=== PATIENT | male | born 1960 | race Caucasian/White ===

== ENCOUNTER 2019-02-01 22:11 | Observation (INO) ==
[2019-02-01] MEDS ORDERED: ONDANSETRON 4 MG/2 ML VIAL IV STA (23:07)
[2019-02-01] MEDS ORDERED: PANTOPRAZOLE 40 MG VIAL IV STA (23:07)
[2019-02-01] MEDS ORDERED: SODIUM CHLORIDE 0.9% 1,000 ML IV STA (23:07)
[2019-02-01] MEDS ORDERED: METOCLOPRAMIDE 10 MG/2 ML VIAL IV STA (23:09)
[2019-02-01 23:41] LABS: Basophils # 0.1 10*3/uL (0.0-0.2); Basophils % 0.7 % (0.0-0.8); Eosinophils # 0.3 10*3/uL (0.0-0.87); Eosinophils % 2.2 % (0.00-10.9); Hematocrit 45.2 VOL% (42.0-52.0); Hemoglobin 15.1 GM/DL (14.0-18.0); Immature Granulocytes % 1.1 %; Immature Granulocytes Absolute 0.14 #; Lymphocytes # 2.2 10*3/uL (1.4-4.0); Lymphocytes % 17.8 % (21.2-54.2); Mean Corpuscular HGB Conc 33.4 GM/DL (32-36); Mean Corpuscular Volume 86.9 FL (87-102); Mean Platelet Volume 9.1 FL (9.6-12.0); Neutrophils % 71.2 % (38.7-73.9); Platelet Count 250 T/CUMM (130-400); White Blood Count 12.5 T/CUMM (4-12)
[2019-02-02 00:03] LABS: Alanine Aminotransferase 47 U/L (16-61); Albumin 3.6 G/DL (3.4-5.0); Alkaline Phosphatase 101 U/L (45-117); Amylase 67 U/L (25-115); Aspartate Amino Transferase 32 U/L (0-37); Bilirubin,Total < 0.39 MG/DL (0.2-1.0); Blood Urea Nitrogen 10 MG/DL (7-18); CKMB % 1.6 %; Calcium 9.5 MG/DL (8.5-10.1); Glucose 136 MG/DL (74-106); Osmolality,Calculated 283.1 MOS/KG (273-304); Total Protein 7.2 G/DL (6.4-8.3); Troponin I < 0.015 NG/ML (0.00-0.045)
[2019-02-02 00:15] LABS: Apearance,Urine CLEAR (Clear); Bilirubin,Urine Negative (Negative); Blood, Urine Negative (Negative); Glucose,Urine (UA) 50 mg/dL (Negative); Hyaline Casts,Urine 1 /LPF (0-3); Ketones,Urine Negative (Negative); Mucus,Urine Occasional /LPF (Occasional); Nitrite,Urine Negative (Negative); Protein,Urine Negative; RBC,Urine 1 /HPF (0-4); Urine Color Yellow (Yellow); Urine Urobilinogen < 2.0 EU/DL (0.2-1.0); WBC,Urine 4 /HPF (0-6)
[2019-02-02] MEDS ORDERED: fentaNYL 100 MCG/2 ML VIAL IV STA (00:16)
[2019-02-02] MEDS ORDERED: DICYCLOMINE 20 MG/2 ML AMP IM ONE (00:23)
[2019-02-02] MEDS ORDERED: metroNIDAZOLE INJ 500 MG in PREMIX 1 EACH IV STA (00:55)
[2019-02-02] MEDS ORDERED: methylPREDNISolone SOD SUC 125 MG/2 ML VIAL IV STA (00:55)
[2019-02-02] MEDS ORDERED: ONDANSETRON 4 MG/2 ML VIAL IV PRN (01:49)
[2019-02-02] MEDS ORDERED: ZALEPLON 5 MG CAPSULE PO PRN (02:02)
[2019-02-02] MEDS: ENOXAPARIN 40 MG/0.4 ML SYRINGE SUBCUT SCH (03:08)
[2019-02-02] MEDS: SODIUM CHLORIDE 0.9% 1,000 ML IV SCH ×2 (03:08→15:40)
[2019-02-02] MEDS ORDERED: NICOTINE 21 MG/24 HR PATCH TRANSDERM PRN (04:14)
[2019-02-02] MEDS ORDERED: GLUCAGON 1 MG VIAL IM PRN ×2 (04:14)
[2019-02-02] MEDS ORDERED: MORPHINE 4 MG/1 ML VIAL IV PRN (04:14)
[2019-02-02] MEDS ORDERED: DEXTROSE 50% 25 GM/50 ML VIAL IV PRN ×2 (04:14)
[2019-02-02] MEDS: LEVOFLOXACIN INJ 500 MG in PREMIX 1 EACH IV SCH (04:26)
[2019-02-02 07:16] LABS: Basophils % 0.2 % (0.0-0.8); Eosinophils % 0.1 % (0.00-10.9); Hemoglobin 15.3 GM/DL (14.0-18.0); Immature Granulocytes % 0.9 %; Immature Granulocytes Absolute 0.11 #; Lymphocytes # 1.1 10*3/uL (1.4-4.0); Lymphocytes % 8.3 % (21.2-54.2); Mean Corpuscular HGB Conc 32.6 GM/DL (32-36); Mean Corpuscular Volume 87.7 FL (87-102); Mean Platelet Volume 9.6 FL (9.6-12.0); Monocytes % 1.5 % (1.7-12.7); Platelet Count 241 T/CUMM (130-400); Red Blood Count 5.36 MC/CUMM (3.8-5.5); White Blood Count 12.6 T/CUMM (4-12)
[2019-02-02 07:38] LABS: Calcium 9.3 MG/DL (8.5-10.1); Osmolality,Calculated 279.5 MOS/KG (273-304)
[2019-02-02] MEDS ORDERED: PANTOPRAZOLE 40 MG TABLET PO SCH (09:00)
[2019-02-02] MEDS: ATORVASTATIN 10 MG TABLET PO SCH (09:17)
[2019-02-02] MEDS: CARVEDILOL 6.25 MG TABLET PO SCH ×2 (09:17→17:28)
[2019-02-02] MEDS: TAMSULOSIN 0.4 MG CAPSULE PO SCH ×2 (09:17→20:03)
[2019-02-02] MEDS: metroNIDAZOLE INJ 500 MG in PREMIX 1 EACH IV SCH ×3 (09:18→20:03)
[2019-02-02] MEDS: INSULIN REGULAR 100 UNIT/ML SUBCUT SCH ×4 (10:05→20:10)
[2019-02-02] MEDS: BENAZEPRIL 10 MG TABLET PO SCH (10:06)
[2019-02-02] MEDS: PANTOPRAZOLE 40 MG TABLET PO SCH (20:03)
[2019-02-02] MEDS ORDERED: FAMOTIDINE 20 MG/2 ML VIAL IV SCH (21:00)
[2019-02-02] MEDS ORDERED: PANTOPRAZOLE 40 MG VIAL IV SCH (21:00)
[2019-02-03] MEDS: metroNIDAZOLE INJ 500 MG in PREMIX 1 EACH IV SCH ×4 (01:25→20:36)
[2019-02-03] MEDS: SODIUM CHLORIDE 0.9% 1,000 ML IV SCH ×3 (01:25→18:48)
[2019-02-03] MEDS: LEVOFLOXACIN INJ 500 MG in PREMIX 1 EACH IV SCH (02:36)
[2019-02-03] MEDS: ENOXAPARIN 40 MG/0.4 ML SYRINGE SUBCUT SCH (02:36)
[2019-02-03] MEDS: TAMSULOSIN 0.4 MG CAPSULE PO SCH ×2 (09:53→20:36)
[2019-02-03] MEDS: PANTOPRAZOLE 40 MG TABLET PO SCH ×2 (09:53→20:36)
[2019-02-03] MEDS: ATORVASTATIN 10 MG TABLET PO SCH (09:53)
[2019-02-03] MEDS: CARVEDILOL 6.25 MG TABLET PO SCH ×2 (09:53→16:29)
[2019-02-03] MEDS: BENAZEPRIL 10 MG TABLET PO SCH (09:53)
[2019-02-03] MEDS: INSULIN REGULAR 100 UNIT/ML SUBCUT SCH ×4 (09:53→21:35)
[2019-02-04] MEDS: metroNIDAZOLE INJ 500 MG in PREMIX 1 EACH IV SCH ×3 (01:37→15:45)
[2019-02-04] MEDS: ENOXAPARIN 40 MG/0.4 ML SYRINGE SUBCUT SCH (01:40)
[2019-02-04] MEDS: LEVOFLOXACIN INJ 500 MG in PREMIX 1 EACH IV SCH (02:41)
[2019-02-04 04:59] LABS: Basophils # 0.1 10*3/uL (0.0-0.2); Basophils % 0.7 % (0.0-0.8); Eosinophils # 0.1 10*3/uL (0.0-0.87); Eosinophils % 1.1 % (0.00-10.9); Hematocrit 41.5 VOL% (42.0-52.0); Hemoglobin 13.5 GM/DL (14.0-18.0); Immature Granulocytes % 0.8 %; Immature Granulocytes Absolute 0.08 #; Lymphocytes # 3.1 10*3/uL (1.4-4.0); Lymphocytes % 30.8 % (21.2-54.2); Mean Corpuscular HGB Conc 32.5 GM/DL (32-36); Mean Corpuscular Volume 89.4 FL (87-102); Mean Platelet Volume 9.9 FL (9.6-12.0); Monocytes % 6.8 % (1.7-12.7); Neutrophils % 59.8 % (38.7-73.9); Platelet Count 197 T/CUMM (130-400); Red Blood Count 4.64 MC/CUMM (3.8-5.5); Red Cell Distribution Width 13.9 % (9.3-17.3); White Blood Count 9.9 T/CUMM (4-12)
[2019-02-04 05:19] LABS: Calcium 8.4 MG/DL (8.5-10.1); Osmolality,Calculated 286.8 MOS/KG (273-304)
[2019-02-04] MEDS: SODIUM CHLORIDE 0.9% 1,000 ML IV SCH ×3 (05:34→15:45)
[2019-02-04] MEDS: INSULIN REGULAR 100 UNIT/ML SUBCUT SCH ×2 (08:12→13:17)
[2019-02-04] MEDS ORDERED: LIDOCAINE 1%/EPI INJ 20 ML VIAL ONE (08:26)
[2019-02-04] MEDS ORDERED: BUPIVACAINE MPF 0.25% /EPI 30 ML VIAL ONE (08:26)
[2019-02-04] MEDS: CARVEDILOL 6.25 MG TABLET PO SCH (10:03)
[2019-02-04] MEDS ORDERED: SEVOFLURANE 1 UNIT/15 MINUTE INH ONE (10:03)
[2019-02-04] MEDS ORDERED: MIDAZOLAM 2 MG/2 ML VIAL ONE (10:03)
[2019-02-04] MEDS ORDERED: PROPOFOL 200 MG/20 ML VIAL IV ONE (10:03)
[2019-02-04] MEDS: TAMSULOSIN 0.4 MG CAPSULE PO SCH (10:03)
[2019-02-04] MEDS: ATORVASTATIN 10 MG TABLET PO SCH (10:03)
[2019-02-04] MEDS: PANTOPRAZOLE 40 MG TABLET PO SCH (10:03)
[2019-02-04] MEDS: BENAZEPRIL 10 MG TABLET PO SCH (10:03)
[2019-02-04] MEDS ORDERED: KETOROLAC 30 MG/1 ML VIAL ONE (10:04)
[2019-02-04] MEDS ORDERED: ACETAMINOPHEN 1,000 MG/100 ML VIAL IV ONE (10:04)
[2019-02-04] MEDS ORDERED: ONDANSETRON 4 MG/2 ML VIAL ONE (10:04)
[2019-02-04] MEDS ORDERED: GLYCOPYRROLATE 0.4 MG/2 ML VIAL ONE (10:04)
[2019-02-04] MEDS ORDERED: LACTATED RINGERS 1,000 ML IV ONE (10:04)
[2019-02-04] MEDS ORDERED: ROCURONIUM 100 MG/10 ML VIAL IV ONE (10:04)
[2019-02-04] MEDS ORDERED: fentaNYL 100 MCG/2 ML VIAL ONE (10:04)
[2019-02-04] MEDS ORDERED: NEOSTIGMINE 10 MG/10 ML VIAL ONE (10:04)
[2019-02-04] MEDS ORDERED: DEXAMETHASONE 4 MG/1 ML VIAL ONE (10:04)
[2019-02-04 12:52] VITALS: BP 136/69
== END 2019-02-04 16:02 | disposition home or self-care (01) ==
LOC: N.EDINP 22:11 → N.ED 22:11 → SUATTDRO 02-02 01:49 → N.3E 02-02 02:22
PROVIDERS: ADMIT Internal Medicine Nephrology; ATTEND Internal Medicine
PROC: LAPCHOL (2019-02-04 08:40)